=== PATIENT | female | born 1955 | race Caucasian/White ===

== ENCOUNTER → 2016-07-27 | Outpatient (CLI) | payer OTHER ==
[~2016-07-27] MED LIST: KEFLEX500 MG PO; LAMICTAL100 MG PO; NEURONTIN600 MG PO; PEPCID20 MG PO
== END ==
LOC: RAD 11:54
DX: Z12.31 Encounter for screening mammogram for malignant neoplasm of breast (principal)

== ENCOUNTER → 2017-08-22 | Outpatient (CLI) | payer OTHER | LOC: RAD 10:24 | DX: Z12.31 Encounter for screening mammogram for malignant neoplasm of breast (principal) ==

== ENCOUNTER → 2018-10-08 | Outpatient (CLI) | payer OTHER | LOC: BC 09:58 | DX: Z12.31 Encounter for screening mammogram for malignant neoplasm of breast (principal) ==